=== PATIENT | female | born 2000 | race African-American/Black ===

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

== ENCOUNTER 2018-10-04 04:44 | Emergency (ER) | payer SELFPAY ==
[~2018-10-04] VITALS: Ht 167.6 cm; Wt 72.6 kg
[~2018-10-04 04:44] MED LIST changes: +ALBU2.5V8 IH; +ALBU2.5V8 INH; -ALBU6.7H IH; -ALBU8.5H8 INH
[2018-10-04 04:45] VITALS: BP 118/68
[2018-10-04] MEDS ORDERED: ALBU1.25 NEB (05:08)
[2018-10-04] MEDS ORDERED: flovent (05:08)
[2018-10-04] MEDS ORDERED: advair inhaler (05:08)
[2018-10-04] MEDS ORDERED: IPRATRPIUM/ALBUTEROL 0.5/2.5MG 3 ML NEBU. NEB ONE (05:15)
[2018-10-04] MEDS ORDERED: ALBU2.5V8 INH (05:21)
--- NOTE | 2018-10-04 05:21 | PHYS DOC ---
Past History Past Medical History: Asthma Past Surgical History: No Surgical History Smoking: Non-smoker Alcohol Use: None Drug Use: Marijuana Adult General Chief Complaint Chief Complaint: ASTHMA HPI HPI Patient is a 18-year-old female who presents with complaint of wheezing and shortness of breath that started yesterday. Patient states that she had an inhaler but lost it yesterday and states that she tried to sleep through the wheezing but she states that she just wasn't able to. She does admit to cough but states that the cough is just been dry. She denies any fever or chest pain. Patient states that shortness of breath is worsened with exertion.[] Review of Systems Review of Systems Constitutional: Denies fever or chills [] Respiratory: Complains of cough, wheezing and shortness of breath [] Cardiovascular: No additional information not addressed in HPI [] Integument: Denies rash or skin lesions [] Current Medications Current Medications Current Medications Medications (Trade) Dose Ordered Sig/Brendan Start Time Stop Time Status Last Admin Dose Admin Albuterol/ Ipratropium (Duoneb) 3 ml 1X ONCE 10/04/18 05:15 10/04/18 05:16 10/04/18 05:02 3 ML Allergies Allergies Allergies Coded Allergies Type Severity Reaction Last Updated Verified No Known Drug Allergies 04/07/17 No Physical Exam Physical Exam Constitutional: Well developed, well nourished, no acute distress, non-toxic appearance. [] Cardiovascular:Heart rate regular rhythm, no murmur [] Lungs & Thorax: Lungs demonstrate fairly good air movement bilaterally with both inspiratory and expiratory wheezes heard throughout to auscultation [] Skin: Warm, dry, no erythema, no rash. [] Current Patient Data Vital Signs Vital Signs Date Time Temp Pulse Resp B/P (MAP) Pulse Ox O2 Delivery O2 Flow Rate FiO2 10/04/18 04:45 97.8 69 28 100 Room Air EKG EKG [] Radiology/Procedures Radiology/Procedures [] Course & Med Decision Making Course & Med Decision Making Pertinent Labs and Imaging studies reviewed. (See chart for details) [] Dragon Disclaimer Dragon Disclaimer This electronic medical record was generated, in whole or in part, using a voice recognition dictation system. Departure Departure: Impression: Primary Impression: Asthma exacerbation Disposition: HOME, SELF-CARE Condition: STABLE Referrals: RYLEY FONG (PCP) Patient Instructions: Asthma, Adult Scripts Albuterol Sulfate (PROAIR HFA INHALER) 8.5 Gm Hfa.aer.ad 2 PUFF INH PRN Q6HRS PRN for SHORTNESS OF BREATH, #1 INHALER 1 Refill Prov: ROHITH AMBROCIO Jr. DO 10/04/18 Problem Qualifiers Primary Impression: Asthma exacerbation Asthma severity: unspecified severity Asthma persistence: unspecified Qualified Codes: J45.901 - Unspecified asthma with (acute) exacerbation ROHITH AMBROCIO Jr. DO Oct 04, 2018 05:21
[2018-10-04] MEDS ORDERED: ALBUTEROL SULFATE 8GM INHALER. ONE (05:25)
[2018-10-04] MEDS ORDERED: ALBUTEROL SULFATE 8GM INHALER. INH SCH (05:30)
== END 2018-10-04 05:29 | disposition home or self-care (01) ==
LOC: ER 04:44
DX: J45.901 Unspecified asthma with (acute) exacerbation (principal)
CPT/HCPCS: 94640; 99283; J7620

== ENCOUNTER 2019-01-25 16:17 | Emergency (ER) | payer SELFPAY ==
[~2019-01-25] VITALS: Ht 167.6 cm; Wt 74.8 kg
[~2019-01-25 16:17] MED LIST changes: +ALBU1.25 NEB; +advair inhaler; +flovent
[2019-01-25 16:22] VITALS: BP 111/84
[2019-01-25] MEDS ORDERED: IPRATRPIUM/ALBUTEROL 0.5/2.5MG 3 ML NEBU. NEB ONE (16:30)
--- NOTE | 2019-01-25 16:35 | PHYS DOC ---
Past History Past Medical History: Asthma Past Surgical History: No Surgical History Smoking: Cigarettes Alcohol Use: None Drug Use: Marijuana Adult General Chief Complaint Chief Complaint: SHORTNESS OF BREATH HPI HPI Patient is a 18-year-old female presents complaining of shortness of breath. This started last night. Minimal relief with her home inhaler. Patient was seen by her primary care physician last week and noted to be wheezing at that time. She was prescribed steroids which she just picked up from the pharmacy today and has taken the first dose. Patient also has nasal congestion. No fever. Nonproductive cough. No leg swelling. No chest pain or palpitations. No PE risk factors. Symptoms are moderate in intensity.[] Review of Systems Review of Systems Constitutional: Denies fever or chills [] Eyes: Denies change in visual acuity, redness, or eye pain [] HENT: Denies ear pain or sore throat, see history of present illness [] Respiratory: See history of present illness[] Cardiovascular: No chest pain or palpitations[] GI: Denies abdominal pain, nausea, vomiting, bloody stools or diarrhea [] : Denies dysuria or hematuria [] Musculoskeletal: Denies back pain or joint pain [] Integument: Denies rash or skin lesions [] Neurologic: Denies headache, focal weakness or sensory changes [] Endocrine: Denies polyuria or polydipsia [] All other systems were reviewed and found to be within normal limits, except as documented in this note. Current Medications Current Medications Current Medications Medications (Trade) Dose Ordered Sig/Brendan Start Time Stop Time Status Last Admin Dose Admin Albuterol/ Ipratropium (Duoneb) 3 ml 1X ONCE 01/25/19 16:30 01/25/19 16:31 UNV Allergies Allergies Allergies Coded Allergies Type Severity Reaction Last Updated Verified No Known Drug Allergies 04/07/17 No Physical Exam Physical Exam Constitutional: Well developed, well nourished, no acute distress, non-toxic appearance. [] HENT: Normocephalic, atraumatic, bilateral external ears normal, oropharynx moist, no oral exudates, nose normal. [] Eyes: PERRLA, EOMI, conjunctiva normal, no discharge. [] Neck: Normal range of motion, no tenderness, supple, no stridor. [] Cardiovascular:Heart rate regular rhythm, no murmur [] Lungs & Thorax: Bilateral breath sounds with expiratory wheezes, no increased work of breathing is present. She speaks full sentences.[] Abdomen: Bowel sounds normal, soft, no tenderness, no masses, no pulsatile masses. [] Skin: Warm, dry, no erythema, no rash. [] Back: No tenderness, no CVA tenderness. [] Extremities: No tenderness, no cyanosis, no clubbing, ROM intact, no edema. [] Neurologic: Alert and oriented X 3, normal motor function, normal sensory fun ction, no focal deficits noted. [] Psychologic: Affect normal, judgement normal, mood normal. [] Current Patient Data Vital Signs Vital Signs Date Time Temp Pulse Resp B/P (MAP) Pulse Ox O2 Delivery O2 Flow Rate FiO2 01/25/19 16:22 98.2 86 24 98 Room Air EKG EKG [] Radiology/Procedures Radiology/Procedures [] Course & Med Decision Making Course & Med Decision Making Pertinent Labs and Imaging studies reviewed. (See chart for details) ED course: Patient arrived, was placed in bed, and tolerated exam well. She was given a DuoNeb breathing treatment which significantly improved her perceived work of breathing, and her lungs were clear to auscultation after the breathing treatment. She reported feeling much better. She was discharged in improved condition with all questions answered. Medical decision making: Patient appears to have an asthma exacerbation, no evidence of pneumonia, no pneumothorax, no pulmonary embolism. No evidence of hypoxia or status asthmaticus. No evidence of congestive heart failure.[] Dragon Disclaimer Dragon Disclaimer This electronic medical record was generated, in whole or in part, using a voice recognition dictation system. Departure Departure: Impression: Primary Impression: Asthma exacerbation Disposition: 01 HOME, SELF-CARE Condition: IMPROVED Referrals: RYLEY FONG (PCP) Follow-up in 2 days Patient Instructions: Asthma Attacks, Prevention, Asthma, Adult Additional Instructions: Stop smoking! Take your medication as prescribed. Follow-up with your regular doctor in 2 days. Return to the ER if worsening difficulty breathing or any other concerns. Scripts Ipratropium [place] (IPRATROPIUM BROMIDE) 0.2 Mg/1 Ml Solution 1 VIAL NEB Q6HRS for difficulty breathing, #1 B 0 Refills Prov: CORDELL GUTIERREZ DO 01/25/19 Albuterol Sulfate (ALBUTEROL SULFATE CONC NEB SOLN) 2.5 Mg/0.5 Ml Vial.neb 1 VIAL NEB Q6HRS for shortness of breath, #60 VIAL 0 Refills Prov: CORDELL GUTIERREZ DO 01/25/19 Problem Qualifiers Primary Impression: Asthma exacerbation Asthma severity: mild Asthma persistence: intermittent Qualified Codes: J45.21 - Mild intermittent asthma with (acute) exacerbation CORDELL GUTIERREZ DO Jan 25, 2019 16:35
[2019-01-25] MEDS ORDERED: IPRA0.2S5 NEB (17:01)
[2019-01-25] MEDS ORDERED: ALBU2.5V14 NEB (17:01)
[2019-01-26] MEDS ORDERED: FLUT1DIS3 IH (03:48)
[2019-01-28] MEDS ORDERED: GUAI600T47 PO (12:11)
[2019-01-28] MEDS ORDERED: PRED1TAB PO (12:11)
[2019-01-28] MEDS ORDERED: IPRA3AMP29 NEB (12:11)
[2019-01-28] MEDS ORDERED: ACET325T9 PO (12:11)
== END 2019-01-25 17:09 | disposition home or self-care (01) ==
LOC: ER 16:17
DX: J45.21 Mild intermittent asthma with (acute) exacerbation (principal); F17.210 Nicotine dependence, cigarettes, uncomplicated
CPT/HCPCS: 94640; 99283; J7620

== ENCOUNTER 2019-01-26 01:05 | Inpatient (IN) | payer SELFPAY ==
[~2019-01-26] VITALS: Ht 167.6 cm; Wt 71.0 kg
[~2019-01-26 01:05] MED LIST changes: +ALBU2.5V14 NEB; +IPRA0.2S5 NEB
[2019-01-26] MEDS ORDERED: IPRATRPIUM/ALBUTEROL 0.5/2.5MG 3 ML NEBU. NEB ONE (01:30)
[2019-01-26] MEDS ORDERED: ALBUTEROL SULFATE 2.5 MG/3 ML NEBU. CONT NEB ONE (01:30)
--- NOTE | 2019-01-26 01:43 | PHYS DOC ---
Past History Past Medical History: Asthma Past Surgical History: No Surgical History Smoking: Cigarettes Alcohol Use: None Drug Use: Marijuana Adult General Chief Complaint Chief Complaint: SHORTNESS OF BREATH HPI HPI 18-year-old female presents with shortness of breath and wheezing. This is the patient's third emergency room visit in less than 24 hours. She was seen at this facility, given a breathing treatment, and given prescriptions for home. She was then seen at the other emergency room in [facility] about 4 hours ago where she had 2 breathing treatments and prescriptions for home. The patient tells me she was not given any steroids whether by injection or orally at either of her previous visits. She comes back in [facility] because she is still having diffuse wheezing and feels short of breath. She denies fever or chills. He has a dry cough. She has a history of asthma. Review of Systems Review of Systems Constitutional: Denies fever or chills [] Eyes: Denies change in visual acuity, redness, or eye pain [] HENT: Denies nasal congestion or sore throat [] Respiratory: Cough with shortness of breath [] Cardiovascular: No additional information not addressed in HPI [] GI: Denies abdominal pain, nausea, vomiting, bloody stools or diarrhea [] : Denies dysuria or hematuria [] Musculoskeletal: Denies back pain or joint pain [] Integument: Denies rash or skin lesions [] Neurologic: Denies headache, focal weakness or sensory changes [] Endocrine: Denies polyuria or polydipsia [] All other systems were reviewed and found to be within normal limits, except as documented in this note. Current Medications Current Medications Current Medications Medications (Trade) Dose Ordered Sig/Brendan Start Time Stop Time Status Last Admin Dose Admin Albuterol Sulfate (Ventolin) 10 mg 1X ONCE 01/26/19 01:30 01/26/19 01:31 DC 01/26/19 01:39 10 MG Albuterol/ Ipratropium (Duoneb) 3 ml 1X ONCE 01/26/19 01:30 01/26/19 01:31 DC 01/26/19 01:39 3 ML Allergies Allergies Allergies Coded Allergies Type Severity Reaction Last Updated Verified No Known Drug Allergies 04/07/17 No Physical Exam Physical Exam Constitutional: Well developed, well nourished, no acute distress, non-toxic appearance. [] HENT: Normocephalic, atraumatic, bilateral external ears normal, oropharynx moist, no oral exudates, nose normal. [] Eyes: PERRLA, EOMI, conjunctiva normal, no discharge. [] Neck: Normal range of motion, no tenderness, supple, no stridor. [] Cardiovascular:Heart rate regular rhythm, no murmur [] Lungs & Thorax: Bilateral breath sounds with diffuse expiratory wheezing.[] Abdomen: Bowel sounds normal, soft, no tenderness, no masses, no pulsatile masses. [] Skin: Warm, dry, no erythema, no rash. [] Back: No tenderness, no CVA tenderness. [] Extremities: No tenderness, no cyanosis, no clubbing, ROM intact, no edema. [] Neurologic: Alert and oriented X 3, normal motor function, normal sensory function, no focal deficits noted. [] Psychologic: Affect normal, judgement normal, mood normal. [] Current Patient Data Vital Signs Vital Signs Date Time Temp Pulse Resp B/P (MAP) Pulse Ox O2 Delivery O2 Flow Rate FiO2 01/26/19 01:05 108 24 95 Room Air EKG EKG [] Radiology/Procedures Radiology/Procedures [] Course & Med Decision Making Course & Med Decision Making Pertinent Labs and Imaging studies reviewed. (See chart for details) We will give the patient a 1 hour albuterol nebulizer treatment as well as 125 of Solu-Medrol by IV. The patient's wheezing is improved, but not gone. She still has wheezing in the left base. Her chest x-ray does not show pneumonia. Since this is her third emergency room visit in less than 24 hours, I believe it would be best to admit her to the hospital. We will give her regular breathing treatments until the steroids kick in and and break her exacerbation. Discussed this plan with the patient and she is in agreement. I discussed the patient with Dr. Salter and he has accepted her for admission. Dr. Salter is going on vacation today and has requested that we tell Dr. Chapa about the patient as he will be covering for Dr. Salter. [] Dragon Disclaimer Dragon Disclaimer This electronic medical record was generated, in whole or in part, using a voice recognition dictation system. Departure Departure: Impression: Primary Impression: Asthma exacerbation Disposition: ADMITTED INPATIENT Admitting Physician: Matt Salter Condition: STABLE Referrals: RYLEY FONG (PCP) Problem Qualifiers Primary Impression: Asthma exacerbation Asthma severity: mild Asthma persistence: intermittent Qualified Codes: J45.21 - Mild intermittent asthma with (acute) exacerbation BERNARDO NARAYANAN DO Jan 26, 2019 01:42
[2019-01-26] MEDS ORDERED: IV NORMAL SALINE 1,000ML 1,000 ML IV ONE (02:00)
[2019-01-26] MEDS ORDERED: methylPREDNISolone SOD SUCC PF 125 MG/2 ML VIAL. IV ONE (02:00)
[2019-01-26 02:13] LABS: BASO % 0 % (0-3); EOS % 0 % (0-3); HEMATOCRIT 37.4 % (36.0-47.0); HEMOGLOBIN 12.5 g/dL (12.0-15.5); LYMPH # 0.2 x10^3/uL (1.0-4.8); LYMPH % 2 % (24-48); MEAN CORPUSCULAR HEMOGLOBIN 31 pg (25-35); MEAN CORPUSCULAR HGB CONC 33 g/dL (31-37); MEAN CORPUSCULAR VOLUME 93 fL (79-100); MONO # 0.1 x10^3/uL (0.0-1.1); MONO % 1 % (0-9); NEUT # 12.5 x10^3uL (1.8-7.7); NEUT % 97 % (31-73); PLATELET COUNT 293 x10^3/uL (140-400); RED BLOOD COUNT 4.05 x10^6/uL (3.50-5.40); RED CELL DISTRIBUTION WIDTH 13.5 % (11.5-14.5); WHITE BLOOD COUNT 12.8 x10^3/uL (4.0-11.0)
[2019-01-26] MEDS ORDERED: ONDANSETRON PF 4 MG/2 ML VIAL. IVP ONE (02:15)
[2019-01-26 02:30] LABS: CALCIUM 9.2 mg/dL (8.5-10.1); CREATININE 0.9 mg/dL (0.6-1.0); GFR 96.6; POTASSIUM 3.2 mmol/L (3.5-5.1); TOTAL BILIRUBIN 0.5 mg/dL (0.2-1.0); TOTAL PROTEIN 7.9 g/dL (6.4-8.2)
[2019-01-26] MEDS ORDERED: ONDANSETRON PF 4 MG/2 ML VIAL. IV PRN (02:45)
[2019-01-26 03:33] VITALS: BP 119/72
--- NOTE | 2019-01-26 03:34 | NUR ---
The patient, YVES RAYMOND, 18 y/o, F admitted by KSENIA LONGORIA MD, was given written information regarding hospital policies, unit procedures and contact persons. Pt accompanied onto the unit by EMS personnel and nursing foreman or supervisor and operator via gurney. Friend at bedside on admission. Gurney lowered to the ground and pt ambulated independently to the bed. VSS. This is pts third ER visit in the past 24hr for her asthma. Pt oriented to room, visiting policy and plan of care. Pt agreeable at this time. Valuables were checked and left in room with pt. Call light within reach.
[2019-01-26] MEDS ORDERED: FLUT1DIS3 IH (03:48)
--- NOTE | 2019-01-26 04:00 | RAD ---
EXAM: CHEST ONE VIEW. HISTORY: Shortness of breath, cough, weakness. COMPARISON: 11/08/2016. FINDINGS: A frontal view of the chest is obtained. There are no confluent infiltrates. There is no pneumothorax or pleural effusion. The heart is mildly enlarged. IMPRESSION: 1. Mild cardiomegaly. Correlate with other clinical data. Electronically signed by: Paula Mg MD (01/26/2019 3:57 AM) [facility]
[2019-01-26 06:44] VITALS: BP 116/56
[2019-01-26] MEDS: ALBUTEROL SULFATE 2.5 MG/3 ML NEBU. NEB PRN ×2 (07:09→09:27)
[2019-01-26] MEDS ORDERED: FLU VAX QS 2019-20 (36MOS+)/PF 0.5 ML SYRINGE. VAX IM ONE (09:00)
[2019-01-26] MEDS ORDERED: ACETAMINOPHEN 325 MG TABLET PO ONE (09:21)
[2019-01-26] MEDS: ACETAMINOPHEN 325 MG TABLET PO PRN ×2 (09:27→17:04)
[2019-01-26] MEDS ORDERED: ACETAMINOPHEN 325 MG TABLET PO PRN (09:30)
[2019-01-26] MEDS: IPRATRPIUM/ALBUTEROL 0.5/2.5MG 3 ML NEBU. NEB SCH ×3 (10:00→20:21)
[2019-01-26 10:17] VITALS: BP 115/65
[2019-01-26] MEDS: methylPREDNISolone SOD SUCC PF 125 MG/2 ML VIAL. IV SCH ×3 (10:27→20:31)
--- NOTE | 2019-01-26 13:12 | NUR ---
Pt is alert and oriented x 4. Pt able to verbalize wants and desires. Pt verbalizes understanding about condition. Pt is receiving Albuterol and Solumedrol/ [place] combination, along with Mucinex for asthma exacerbation. Bilateral wheezing heard upon auscultation in all shankar. Educated pt on the importance of taking medications as prescribed and not smoking majuranna. Gave influenza vaccination in the AM. Educated pt on the importance of taking the flu shot. Pt verbalized understanding. Pt expressed discomfort upon flushing IV in L AC, per patient request, discontinued this IV and placed a new one in the R wrist. Flushes easily, pt explains no discomfort, cap applied, saline locked. Will continue to monitor and reassess, will give medication as prescribed. Bed in lowest position, non skid socks applied, call light within reach.
--- NOTE | 2019-01-26 13:59 | PDOC1 ---
History of Present Illness Reason for Visit: Shortness of breath History of Present Illness The patient is a 18-year-old female with asthma. She is also a marijuana smoker. She apparently had been in the ER 3 times in the last 24 hours. She was having shortness of breath, denies any fevers, chills, nausea, vomiting, constipation, diarrhea. She states that the last time she smoked was on Friday. She denies any sick contacts. She had not been given any steroids or antibiotics recently. Chief Complaint: SHORTNESS OF BREATH Allergies: Coded Allergies: No Known Drug Allergies (Unverified , 04/07/17) Past Medical History Pulmonary: Asthma Past Surgical History: No pertinent history Family History: No pertinent hx Past Social History Smoke: <1 pack per day (marijuana) Occupation: [employer] flatbed truck driver Drugs: Marijuana Review of Systems Review Of Systems Fourteen system , review of systems has been reviewed. See HPI for pertinent positives and negative responses, other mcnair all other systems are negative, non pertinent or non contributory Medications Current Medications Albuterol/ Ipratropium (Duoneb) 3 ml 1X ONCE NEB Last administered on 01/26/19at 01:39; Start 01/26/19 at 01:30; Stop 01/26/19 at 01:31; Status DC Albuterol Sulfate (Ventolin) 10 mg 1X ONCE CONT NEB Last administered on 01/26/19at 01:39; Start 01/26/19 at 01:30; Stop 01/26/19 at 01:31; Status DC Methylprednisolone Sodium Succinate (SOLU-Medrol 125MG VIAL) 125 mg 1X ONCE IV Last administered on 01/26/19at 02:05; Start 01/26/19 at 02:00; Stop 01/26/19 at 10:10; Status DC Sodium Chloride 1,000 ml @ 1,000 mls/hr 1X ONCE IV Last administered on 01/26/19at 02:06; Start 01/26/19 at 02:00; Stop 01/26/19 at 02:59; Status DC Ondansetron HCl (Zofran) 4 mg 1X ONCE IVP Last administered on 01/26/19at 02:05; Start 01/26/19 at 02:15; Stop 01/26/19 at 02:16; Status DC Ondansetron HCl (Zofran) 4 mg PRN Q4HRS PRN IV NAUSEA/VOMITING; Start 01/26/19 at 02:45; Stop 01/27/19 at 02:44 Albuterol Sulfate (Ventolin) 2.5 mg PRN Q2HR PRN NEB WHEEZING Last administered on 01/26/19at 09:27; Start 01/26/19 at 02:45; Stop 01/26/19 at 10:10; Status DC Influenza Virus Vaccine Quadrival (Afluria Quad 2019-20 (3yr Up) Syringe) 0.5 ml ONCE ONCE VAX IM Last administered on 01/26/19at 09:00; Start 01/26/19 at 09:00; Stop 01/26/19 at 09:01; Status DC Acetaminophen (Tylenol) 650 mg PRN Q6HRS PRN PO PAIN / TEMP Last administered on 01/26/19at 09:27; Start 01/26/19 at 09:15 Acetaminophen (Tylenol) 650 mg PRN Q6HRS PRN PO PAIN / TEMP; Start 01/26/19 at 09:30; Status UNV Acetaminophen (Tylenol) 325 mg STK-MED ONCE PO ; Start 01/26/19 at 09:21; Stop 01/26/19 at 09:21; Status DC Albuterol/ Ipratropium (Duoneb) 3 ml RTQID NEB Last administered on 01/26/19at 12:33; Start 01/26/19 at 12:00 Guaifenesin (Mucinex Er) 1,200 mg BID PO Last administered on 01/26/19at 10:26; Start 01/26/19 at 10:15 Methylprednisolone Sodium Succinate (SOLU-Medrol 125MG VIAL) 60 mg Q8HRS IV Last administered on 01/26/19at 13:46; Start 01/26/19 at 10:30 Active Scripts Active Proair Hfa Inhaler (Albuterol Sulfate) 8.5 Gm Hfa.aer.ad 2 Puff INH PRN Q6HRS PRN Reported Advair 250-50 Diskus (Fluticasone/Salmeterol) 1 Each Disk.w.dev 1 Puff IH BID Exam Vital Signs Vital Signs Date Time Temp Pulse Resp B/P (MAP) Pulse Ox O2 Delivery O2 Flow Rate FiO2 01/26/19 10:17 97.6 90 20 115/65 (82) 96 Room Air 12 point ROS was done and was positive only for HPI Alert oriented 3, mild distress PERRLA, EOMI Regular rate and rhythm Diffuse wheezing bilaterally Positive bowel sounds, nontender, nondistended Cranial nerves II through XII gross intact No rashes No edema General Appearance: Alert, Oriented X3, Cooperative, No acute distress Assessment/Plan Assessment/Plan Asthma exacerbation -Duo nebs 4 times a day -Mucinex -Solu-Medrol 62 mg IV 3 times a day -Flutter valve Hypokalemia -Replacing Disposition-likely change to prednisone tomorrow and discharge COURSE Allergies Coded Allergies Type Severity Reaction Last Updated Verified No Known Drug Allergies 04/07/17 No Laboratory Tests Test 01/26/19 01:39 01/26/19 02:00 Bedside Urine HCG, Qualitative hcg negative (Negative) White Blood Count 12.8 x10^3/uL (4.0-11.0) Red Blood Count 4.05 x10^6/uL (3.50-5.40) Hemoglobin 12.5 g/dL (12.0-15.5) Hematocrit 37.4 % (36.0-47.0) Mean Corpuscular Volume 93 fL (79-100) Mean Corpuscular Hemoglobin 31 pg (25-35) Mean Corpuscular Hemoglobin Concent 33 g/dL (31-37) Red Cell Distribution Width 13.5 % (11.5-14.5) Platelet Count 293 x10^3/uL (140-400) Neutrophils (%) (Auto) 97 % (31-73) Lymphocytes (%) (Auto) 2 % (24-48) Monocytes (%) (Auto) 1 % (0-9) Eosinophils (%) (Auto) 0 % (0-3) Basophils (%) (Auto) 0 % (0-3) Neutrophils # (Auto) 12.5 x10^3uL (1.8-7.7) Lymphocytes # (Auto) 0.2 x10^3/uL (1.0-4.8) Monocytes # (Auto) 0.1 x10^3/uL (0.0-1.1) Eosinophils # (Auto) 0.0 x10^3/uL (0.0-0.7) Basophils # (Auto) 0.0 x10^3/uL (0.0-0.2) Sodium Level 140 mmol/L (136-145) Potassium Level 3.2 mmol/L (3.5-5.1) Chloride Level 102 mmol/L (98-107) Carbon Dioxide Level 23 mmol/L (21-32) Anion Gap 15 (6-14) Blood Urea Nitrogen 7 mg/dL (7-20) Creatinine 0.9 mg/dL (0.6-1.0) Estimated GFR (Cockcroft-Gault) 96.6 BUN/Creatinine Ratio 8 (6-20) Glucose Level 148 mg/dL (70-99) Calcium Level 9.2 mg/dL (8.5-10.1) Total Bilirubin 0.5 mg/dL (0.2-1.0) Aspartate Amino Transf (AST/SGOT) 16 U/L (15-37) Alanine Aminotransferase (ALT/SGPT) 14 U/L (14-59) Alkaline Phosphatase 74 U/L (46-116) Total Protein 7.9 g/dL (6.4-8.2) Albumin 4.0 g/dL (3.4-5.0) Albumin/Globulin Ratio 1.0 (1.0-1.7) Current Medications Medications (Trade) Dose Ordered Sig/Brendan Route PRN Reason Start Time Stop Time Status Last Admin Dose Admin Albuterol/ Ipratropium (Duoneb) 3 ml 1X ONCE NEB 01/26/19 01:30 01/26/19 01:31 DC 01/26/19 01:39 Albuterol Sulfate (Ventolin) 10 mg 1X ONCE CONT NEB 01/26/19 01:30 01/26/19 01:31 DC 01/26/19 01:39 Methylprednisolone Sodium Succinate (SOLU-Medrol 125MG VIAL) 125 mg 1X ONCE IV 01/26/19 02:00 01/26/19 10:10 DC 01/26/19 02:05 Sodium Chloride 1,000 ml @ 1,000 mls/hr 1X ONCE IV 01/26/19 02:00 01/26/19 02:59 DC 01/26/19 02:06 Ondansetron HCl (Zofran) 4 mg 1X ONCE IVP 01/26/19 02:15 01/26/19 02:16 DC 01/26/19 02:05 Ondansetron HCl (Zofran) 4 mg PRN Q4HRS PRN IV NAUSEA/VOMITING 01/26/19 02:45 01/27/19 02:44 Albuterol Sulfate (Ventolin) 2.5 mg PRN Q2HR PRN NEB WHEEZING 01/26/19 02:45 01/26/19 10:10 DC 01/26/19 09:27 Influenza Virus Vaccine Quadrival (Afluria Quad 2019-20 (3yr Up) Syringe) 0.5 ml ONCE ONCE VAX IM 01/26/19 09:00 01/26/19 09:01 DC 01/26/19 09:00 Acetaminophen (Tylenol) 650 mg PRN Q6HRS PRN PO PAIN / TEMP 01/26/19 09:15 01/26/19 09:27 Acetaminophen (Tylenol) 650 mg PRN Q6HRS PRN PO PAIN / TEMP 01/26/19 09:30 UNV Acetaminophen (Tylenol) 325 mg STK-MED ONCE PO 01/26/19 09:21 01/26/19 09:21 DC Albuterol/ Ipratropium (Duoneb) 3 ml RTQID NEB 01/26/19 12:00 01/26/19 12:33 Guaifenesin (Mucinex Er) 1,200 mg BID PO 01/26/19 10:15 01/26/19 10:26 Methylprednisolone Sodium Succinate (SOLU-Medrol 125MG VIAL) 60 mg Q8HRS IV 01/26/19 10:30 01/26/19 13:46 Orders Procedure Category Date Status Time Ipratrpium/Albuterol PHA 01/26/19 Complete 0.5/2.5mg (Duoneb) 01:30 Albuterol Sulfate PHA 01/26/19 Complete (Ventolin) 01:30 Urine Test [facility] 01/26/19 In Process 01:32 Urine Test [facility] 01/26/19 In Process 01:32 Cbc W [facility] LAB 01/26/19 Complete 01:39 Comprehensive LAB 01/26/19 Complete Metabolic Panel 01:39 Methylprednisolone PHA 01/26/19 Complete 125mg Vial (Solu-Medr 02:00 Iv Normal Saline PHA 01/26/19 Complete 1,000ml (Iv Sodium 02:00 Continuous Neb Med RT 01/26/19 Complete 1st Hour Ondansetron Pf PHA 01/26/19 Complete (Zofran) 02:15 Chest Ap Only RAD 01/26/19 Resulted 02:17 [place] Order ADT 01/26/19 Transmitted 02:37 Code Status CODE 01/26/19 Transmitted 02:37 Vital Signs, Per [facility] 01/26/19 In Process Protocol 02:37 Regular DIET 01/26/19 Transmitted Breakfast Ambulate Ad Jie [facility] 01/26/19 In Process 02:37 Ondansetron Pf PHA 01/26/19 In Process (Zofran) 02:45 Albuterol Sulfate PHA 01/26/19 Complete (Ventolin) 02:45 Admit Orders ADT 01/26/19 Transmitted Notify Provider No [facility] 01/26/19 In Process Vte Prophyl 03:55 Flu Vacc Screen [place] 01/26/19 In Process 04:03 Flu Vax Qs PHA 01/26/19 Complete (36mos+)/Pf (Afluria 09:00 Acetaminophen PHA 01/26/19 In Process (Tylenol) 09:15 Acetaminophen PHA 01/26/19 Complete (Tylenol) 09:21 Ipratrpium/Albuterol PHA 01/26/19 In Process 0.5/2.5mg (Duoneb) 12:00 Airway Inhalation RT 01/26/19 Logged Treatment 10:06 Guaifenesin Er Tablet PHA 01/26/19 In Process (Mucinex Er) 10:15 Methylprednisolone PHA 01/26/19 In Process 125mg Vial (Solu-Medr 10:30 Flutter Valve Initial RT 01/26/19 Logged Flutter Valve RT 01/26/19 Logged Subsequent Potassium Chloride PHA 01/26/19 Logged Tab (Klor-Con) 14:00 Vital Signs Date Time Temp Pulse Resp B/P (MAP) Pulse Ox O2 Delivery O2 Flow Rate FiO2 01/26/19 10:17 97.6 90 20 115/65 (82) 96 Room Air YASMINE WOLF MD Jan 26, 2019 13:59
[2019-01-26] MEDS ORDERED: POTASSIUM CHLORIDE 20 MEQ TABLET.ER. PO ONE (14:20)
[2019-01-26 14:40] VITALS: BP 124/73
[2019-01-26 18:51] VITALS: BP 121/58
[2019-01-26 22:25] VITALS: BP 110/68
[2019-01-27 05:04] VITALS: BP 129/79
[2019-01-27] MEDS: IPRATRPIUM/ALBUTEROL 0.5/2.5MG 3 ML NEBU. NEB SCH ×5 (05:04→20:33)
[2019-01-27] MEDS: methylPREDNISolone SOD SUCC PF 125 MG/2 ML VIAL. IV SCH (06:14)
[2019-01-27] MEDS ORDERED: ELECTROLYTE (NON-ICU) PROTOCOL MC PRN (11:30)
[2019-01-27 11:31] VITALS: BP 108/70
--- NOTE | 2019-01-27 13:17 | NUR ---
Duoneb tx was given at 0929 using the 1200 MARS med. Med and Pt. was scanned. Another MARS tx for 1200 Duoneb showed up later. This one was discontinued as a duplicate.
[2019-01-27] MEDS: methylPREDNISolone SOD SUCC PF 40 MG/ML VIAL. IV SCH ×2 (14:16→20:22)
[2019-01-27 15:30] VITALS: BP 119/75
--- NOTE | 2019-01-27 18:29 | PN ---
DATE: SUBJECTIVE: This is a 19-year-old female who has been in the Emergency Room a couple times here in the last week or so, difficulty breathing with asthma. The patient admits to a heavy smoker of marijuana. She continues to have problems with breathing with both inspiratory and expiratory wheezing and using some accessory muscles. The patient did not improve with outpatient therapy. As a result of that, she was admitted to the hospital for IV steroids and aggressive pulmonary toilet as indicated above. In any case today, she seems to be doing a little bit better, but she is still wheezing ____. OBJECTIVE: VITAL SIGNS: Blood pressure 120/50, respiratory rate 20, pulse 73, afebrile, good oxygen saturation. LUNGS: Diminished in both inspiratory and expiratory wheezes anterior, posterior in all 5 lobes. GENERAL: The patient otherwise is a pleasant young lady. CARDIOVASCULAR: Stable. We had a long discussion about smoking of any form which could cause problems with her lungs and since she already has a predisposition for asthma. She is only exacerbating a problem that already exists for this individual. In any case, we will continue on steroids, aggressive pulmonary toilet, smoking cessation indication and make further evaluation on her as indicated. ELDON PONCE MD DR: RAFAEL/[email or web address] JOB#: [id number] / [id number]
[2019-01-27] MEDS: ACETAMINOPHEN 325 MG TABLET PO PRN (18:52)
[2019-01-27 19:48] VITALS: BP 118/75
[2019-01-28] MEDS: IPRATRPIUM/ALBUTEROL 0.5/2.5MG 3 ML NEBU. NEB SCH ×2 (05:09→11:44)
[2019-01-28 06:10] VITALS: BP 122/59
[2019-01-28] MEDS: methylPREDNISolone SOD SUCC PF 40 MG/ML VIAL. IV SCH (06:33)
[2019-01-28 10:49] VITALS: BP 115/68
[2019-01-28] MEDS ORDERED: ACET325T9 PO (12:11)
[2019-01-28] MEDS ORDERED: GUAI600T47 PO (12:11)
[2019-01-28] MEDS ORDERED: PRED1TAB PO (12:11)
[2019-01-28] MEDS ORDERED: IPRA3AMP29 NEB (12:11)
--- NOTE | 2019-01-28 13:50 | NUR ---
PATIENT DISCHARGED FROM HOSPITAL TO HOME. PATIENT GIVEN DISCHARGE PAPERWORK AND VOICED UNDERSTANDING. PRESCRIPTION FOR PREDNISONE 5MG 8 TABLETS A DAY DECREASING BY 1 TABLET EVERY [address] [facility] FOR PATIENT [place]. PATIENT LEFT ROOM TO FAMILY VEHICLE PER SELF AT 1314.
== END 2019-01-28 13:14 | disposition home or self-care (01) | DRG 203 ==
LOC: ER 01:05 → 1 SOUTH 03:22
PROVIDERS: ADMIT Internal Medicine; ATTEND Family Medicine
DX: J45.901 Unspecified asthma with (acute) exacerbation (principal); F17.210 Nicotine dependence, cigarettes, uncomplicated; F12.90 Cannabis use, unspecified, uncomplicated; E87.6 Hypokalemia
CPT/HCPCS: 36415; 71045; 80053; 81025; 85025; 90471; 90686; 94640; 94644; 96361; 96374; 96375; J2405; J2920; J2930; J7613; J7620; 99285-25; J7030